=== PATIENT | male | born 1980 | race Caucasian/White ===

== ENCOUNTER 2025-03-12 20:29 | Emergency (ER) | payer OTHER, SELFPAY ==
[2025-03-12 20:35] VITALS: BP 121/82; PULSE 72; RESP 20; TEMP 36.7; O2SAT 100; BMI 28.1
--- NOTE | 2025-03-12 20:35 | DI.RAD.S_ITS ---
PROCEDURE: XR CHEST 1V INDICATIONS: Chest Pain TECHNIQUE: One view of the chest was acquired. COMPARISON: None. FINDINGS: Surgical changes and devices: Wireless electronic device projects over the left chest. Two small electrodes project over the aortic arch. Lungs and pleura: Lungs are clear. No pleural effusions or pneumothorax. Mediastinum: Mediastinal contours appear normal. Heart size is normal. Bones and chest wall: No suspicious bony lesions. Overlying soft tissues appear unremarkable. IMPRESSION: No acute cardiopulmonary abnormality is seen. Dictated by: Keisha Herrera M.D. on 03/12/2025 at 21:55 Approved by: Keisha Herrera M.D. on 03/12/2025 at 21:56
--- NOTE | 2025-03-12 20:44 | EKG_ITS ---
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
[2025-03-12 21:00] LABS: Add Manual Diff / Slide Review NO; Basophils Absolute Auto 100 /uL (0-100); Basophils Percent Auto 1.1 % (0-2); Eosinophils Absolute Auto 1100 /uL (0-450); Eosinophils Percent Auto 13.4 % (2-4); Hematocrit 43.5 % (41-53); Lymphocytes Absolute Auto 2600 /uL (1100-4500); Lymphocytes Percent Auto 32.3 % (25-40); Mean Corpuscular HGB Conc 34.6 % (30-36); Mean Corpuscular Hemoglobin 31.1 PG (26-34); Mean Corpuscular Volume 90.1 fL (80-100); Monocytes Absolute Auto 600 /uL (0-900); Monocytes Percent Auto 7.8 % (3-14); Neutrophils Absolute Auto 3600 /uL (1500-7000); Neutrophils Percent Auto 45.4 % (50-75); Platelet Count 300 X10^3/uL (150-400); Red Blood Cell Count 4.83 X10^6/uL (4.5-5.9); Red Cell Distribution Width 13.1 % (11.6-14.8); White Blood Cell Count 7.9 X10^3/uL (4.5-11.0)
[2025-03-12 21:08] LABS: Prothrombin Time 11.3 SECONDS (9.4-12.5)
[2025-03-12 21:10] LABS: PTT Partial Thromboplastin Tim 38 SECONDS (25.1-36.5)
[2025-03-12 21:13] LABS: Alanine Aminotransferase 27 IU/L (<50); Albumin 4.6 g/dL (3.5-5.0); Albumin Globulin Ratio 1.4 (1.0-2.8); Alkaline Phosphatase 67 U/L (38-126); Aspartate Aminotransferase 36 IU/L (17-59); BUN Creatinine Ratio 11.9 (6-22); Bilirubin Total 0.7 mg/dL (0.2-1.3); Blood Urea Nitrogen 14 mg/dL (9-20); Calcium 9.6 mg/dL (8.4-10.2); Carbon Dioxide 23 mmol/L (22-32); Chloride 109 mmol/L (98-107); Creatine Kinase 311 U/L (55-170); Estimated Glomerular Filt Rate > 60 mL/min (>60); Globulin 3.3 g/dL (1.7-4.1); Glucose 80 mg/dL (70-99); HEMOLYSIS < 15 (0-50); Lipase 77 U/L (23-300); Magnesium 2.3 mg/dL (1.6-2.3); Potassium 3.7 mmol/L (3.4-5.1); Sodium 141 mmol/L (137-145); Total Protein 7.9 g/dL (6.3-8.2)
[2025-03-12 21:25] LABS: NT-proBNP (BNP-Adult 18+) < 20 pg/mL (<125); Troponin I < 0.012 ng/mL (0.01-0.034)
[2025-03-13] VITALS (7 sets, daily range): BP systolic 112–124; BP diastolic 72–83; PULSE 50–79; RESP 5–23; O2SAT 95–99
--- NOTE | 2025-03-13 01:58 | ED_ITS ---
HPI - Chest Pain General Chief Complaint: Chest Pain Stated Complaint: Tightness in chest, SOB Time Seen by Provider: 03/12/25 22:32 Source: patient Mode of arrival: Ambulatory Limitations: no limitations History of Present Illness HPI narrative: 44-year-old gentleman was moving furniture when he began coughing and experiencing dyspnea chest pressure and wheezing. He does not have a history of asthma or other reactive airway disease. States he did have a similar episode about 3 weeks ago while he was mowing the yd. He has had approximately 4 hour stay in the emergency department and is still significantly wheezy with audible expiratory wheeze but no obvious respiratory distress. He states he has not had any fevers, cough, chills. He has not been exposed to any different medications, there was not a particularly large amount of dust or obvious exposures to allergens with a furniture moving that he was doing today. He does not describe any reactive airway disease type symptoms including dyspnea beyond what he would expect with exercising, prolonged cough after upper respiratory infection. He is not currently having any chest pain. No lower extremity edema Related Data Previous Rx's ?Medication ?Instructions ?Recorded methylprednisolone 4 mg tablets in 4 mg PO DAILY #21 e a 03/13/25 a dose pack (Medrol (David)) Allergies Allergy/AdvReac Type Severity Reaction Status Date / Time gabapentin Allergy Intermediate Rash Verified 03/12/25 20:36 Review of Systems Review of Systems Narrative: Pertinent positive and negative findings as per HPI Patient History Social History Smoking Status: Never smoker Smoking Status: Never smoker Exam Initial Vital Signs Initial Vital Signs: Vital Signs Temperature 98.1 F 03/12/25 20:35 Pulse Rate 72 03/12/25 20:35 Respiratory Rate 20 03/12/25 20:35 Blood Pressure 121/82 03/12/25 20:35 Pulse Oximetry 100 03/12/25 20:35 Oxygen Delivery Method Room Air 03/12/25 20:35 General: Healthy appearing, in no acute distress. Able to give a complete and coherent history. Well-nourished well-developed HEENT: Moist mucous membranes, normal sclera with reactive pupils, Respiratory: Audible expiratory wheeze with talking, mild tachypnea without respiratory distress, no retractions, diffuse wheeze in all lung wheat Cardiac: Regular rate and rhythm no murmurs no bruits Abdomen: Soft, nontender, no rebound or guarding, no flank pain Skin: Warm and dry, no rashes Neurologic: Grossly neurologically intact with no obvious asymmetries or abnormalities Extremities: No trauma, well perfused, no lower extremity edema Psych: Cooperative, appropriate insight and affect Course Orders Ordered: ED Orders 03/12/25 20:35 XR chest 1V Stat EKG-12 Lead Stat 03/12/25 20:55 Complete Blood Count AUTO DIFF Stat Comprehensive Metabolic Panel Stat Lipase Stat Magnesium Stat NT-proBNP (BNP-Adult 18+) Stat PTT Partial Thromboplastin Jameel Stat Prothrombin Time INR Stat Troponin & CK Cardiac Panel Stat Discontinued Medications Aspirin (Aspirin 81 Mg Chew Tab) 324 mg PO NOW ONE Stop: 03/12/25 20:36 Vital Signs Vital signs: Vital Signs - 8 hr 03/12/25 20:35 Temperature 98.1 F Pulse Rate 72 Respiratory Rate 20 Blood Pressure 121/82 Pulse Oximetry 100 Oxygen Delivery Method Room Air MDM - Chest Pain Lab Data 03/12/25 20:55 03/12/25 20:55 Labs: Lab Results 03/12/25 Range/Units 20:55 WBC 7.9 (4.5-11.0) X10^3/uL RBC 4.83 (4.5-5.9) X10^6/uL Hgb 15.0 (13.5-17.5) g/dL Hct 43.5 (41-53) % MCV 90.1 (80-100) fL MCH 31.1 (26-34) PG MCHC 34.6 (30-36) % RDW 13.1 (11.6-14.8) % Plt Count 300 (150-400) X10^3/uL Neut % (Auto) 45.4 L (50-75) % Lymph % (Auto) 32.3 (25-40) % [place] % (Auto) 7.8 (3-14) % Eos % (Auto) 13.4 H (2-4) % Baso % (Auto) 1.1 (0-2) % Neut # (Auto) 3600 (3573-7300) /uL Lymph # (Auto) 2600 (4188-4326) /uL [place] # (Auto) 600 (0-900) /uL Eos # (Auto) 1100 H (0-450) /uL Baso # (Auto) 100 (0-100) /uL PT 11.3 (9.4-12.5) SECONDS INR 1.0 (0.9-1.3) APTT 38 H (25.1-36.5) SECONDS Sodium 141 (137-145) mmol/L Potassium 3.7 (3.4-5.1) mmol/L Chloride 109 H (98-107) mmol/L Carbon Dioxide 23 (22-32) mmol/L BUN 14 (9-20) mg/dL Creatinine 1.18 (0.66-1.25) mg/dL Estimated GFR > 60 (>60) mL/min BUN/Creatinine Ratio 11.9 (6-22) Glucose 80 (70-99) mg/dL Calcium 9.6 (8.4-10.2) mg/dL Magnesium 2.3 (1.6-2.3) mg/dL Total Bilirubin 0.7 (0.2-1.3) mg/dL AST 36 (17-59) IU/L ALT 27 (<50) IU/L Alkaline Phosphatase 67 (38-126) U/L Total Creatine Kinase 311 H (55-170) U/L Troponin I < 0.012 (0.01-0.034) ng/mL NT-Pro-B Natriuret Pep < 20 (<125) pg/mL Total Protein 7.9 (6.3-8.2) g/dL Albumin 4.6 (3.5-5.0) g/dL Globulin 3.3 (1.7-4.1) g/dL Albumin/Globulin Ratio 1.4 (1.0-2.8) Lipase 77 (23-300) U/L ECG Data Interpretation: PROCEDURE: XR CHEST 1V INDICATIONS: Chest Pain TECHNIQUE: One view of the chest was acquired. COMPARISON: None. FINDINGS: Surgical changes and devices: Wireless electronic device projects over the left chest. Two small electrodes project over the aortic arch. Lungs and pleura: Lungs are clear. No pleural effusions or pneumothorax. Mediastinum: Mediastinal contours appear normal. Heart size is normal. Bones and chest wall: No suspicious bony lesions. Overlying soft tissues appear unremarkable. IMPRESSION: No acute cardiopulmonary abnormality is seen. Dictated by: Keisha Herrera M.D. on 03/12/2025 at 21:55 MDM Narrative Medical decision making narrative: 44-year-old gentleman with no prior history of asthma, severe allergy or previous wheezing concerns. States he did have similar episode about 3 weeks ago and today significant wheezing and coughing while moving furniture. He presents with audible wheeze not requiring any oxygen mild tachypnea. Lab work shows no evidence of infection, chemistries are reassuring, troponin is not elevated, no evidence of congestive heart failure. His chest x-ray is unremarkable. EKG shows sinus rhythm with no acute ischemic changes. He is given a DuoNeb and dose of IV so Solu-Medrol in the apartment with significant improvement overall. He is given an MDI inhaler with spacer and instructions on use and adequately demonstrates while taking 2 puffs of the albuterol prior to discharge. At this time this is most likely some type of acute allergic reaction given that he has had 2 episodes in the last 3 weeks and nothing previously. I am going to send him home with a Medrol Dosepak, rescue albuterol inhaler and recommendations that he follow up with his primary care physician. In his crashing additional symptoms prior to discharge he notes that he has been taking Claritin daily because of seasonal allergies and his was noting that he was wheezing at night. Clearly allergy and asthma related diagnosis needs further workup. I think pulmonary function testing may be helpful in delineating his actual diagnosis to maximize appropriate treatment. There was no evidence of worsening respiratory distress pneumothorax, pneumonia, reason for hospitalization or further imaging and he is safe for discharge Discharge Plan Departure Patient Disposition: Home Clinical Impression: Bilateral wheezing Instructions: DI for Reactive Airway Disease-Adult Activity Restrictions/Additional Instructions: Thank you for coming in today You were having a fairly significant reactive airway event when you came into the emergency department. You had significant wheeze in all lung wheat. The fact that it happened while you are moving furniture makes me wonder about allergen exposure as the initial source. The fact that you have been taking Claritin into notices your wheezing at night again, makes me wonder if seasonal allergies are causing mild reactive airway disease for you. The fact that you are moving next week to [place] may help you figure part of that out. They are going to be different allergens in [place] then there are in [place]. In the meantime, you were given a dose of IV steroids as well as a DuoNeb treatment and an albuterol metered-dose inhaler spacer. Please continue your daily Claritin. I would recommend trying the metered-dose inhaler 2 puffs before bedtime and see if your notices that your sleeping wheezing decreases. If you are feeling short of breath, tight or hearing wheezing you can use 2 puffs severe inhaler. With the possibility that this was more an allergic reaction I am also going to give you a steroid taper called a Medrol Dosepak to help reduce with inflammation [place] You do need to talk to your primary care physician once you get established in [place]. I believe pulmonary function testing maybe helpful in figuring out your actual diagnosis so where your most appropriately treating your symptoms. I have given you a copy of this ER note today, it has all of the blood work and imaging studies that were done If you find that you are getting worse or develop any new symptoms, please feel free to return to the emergency department for further evaluation. I hope your move goes well Prescriptions: New methylprednisolone [Medrol (David)] 4 mg tablets,dose pack 4 mg PO DAILY Qty: 21 0RF Stand Alone Forms: Patient Portal/API
[2025-03-13] MEDS: methylPREDNISolone 125 MG/2 ML VIAL IV (02:08)
[2025-03-13] MEDS: ALBUTEROL HFA PREPACK 1 BOX MISC (02:08)
[2025-03-13] MEDS: ALBUTEROL/IPRATROPIUM 3 ML AMPUL INH (02:23)
== END 2025-03-13 03:20 | disposition home or self-care (01) ==
PROVIDERS: Emergency Provider Emergency Medicine
DX: R07.9 Chest pain, unspecified (principal); R06.2 Wheezing; R05.9 Cough, unspecified
CPT/HCPCS: 36415; 71045; 80053; 82550; 83690; 83735; 83880; 84484; 85025; 85610; 85730; 93005; 94640; 96374; 99284; J2919